=== PATIENT | female | born 1995 | race American Indian/Alaskan Native ===

== ENCOUNTER 2017-09-25 02:34 | Inpatient (IN) | payer MEDICAID, OTHER ==
[2017-09-25 02:58] VITALS: BMI 35.3
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
[2017-09-25 05:06] LABS: BASO % 0.5 % (0.0-2.0); EOS % 0.5 % (0.0-4.0); HEMATOCRIT 39.3 % (34.0-47.0); LYMPH # 2.3 K/uL (1.0-4.3); LYMPH % 23.9 % (20.0-40.0); MEAN CELL VOLUME 84.6 fl (81.0-99.0); MEAN CORPUSCULAR HEMOGLOBIN 27.7 pg (27.0-31.0); MEAN CORPUSCULAR HGB CONC 32.7 g/dL (33.0-37.0); MEAN PLATELET VOLUME 7.8 fl (7.2-11.7); MONO # 0.6 K/uL (0.0-0.8); MONO % 6.1 % (0.0-10.0); NEUT # 6.6 K/uL (1.8-7.0); NRBC % 0.1 % (0.0-0.0); WHITE BLOOD COUNT 9.5 K/uL (4.8-10.8)
[2017-09-25 05:13] LABS: RBC URINE 2 /hpf (0-3); URINE BILIRUBIN NEGATIVE (NEGATIVE); URINE BLOOD NEGATIVE (NEGATIVE); URINE COLOR YELLOW (YELLOW); URINE GLUCOSE (UA) NEG (Normal); URINE KETONE 20 mg/dL (NEGATIVE); URINE LEUKOCYTE ESTERASE NEG Leu/uL (Negative); URINE PROTEIN 30 mg/dL (NEGATIVE); URINE UROBILINOGEN 0.2-1.0 mg/dL (0.2-1.0); WBC URINE 3 /hpf (0-5)
[2017-09-25 05:15] LABS: ALB/GLOB RATIO 1.3 (1.0-2.1); ALCOHOL SERUM < 10 mg/dl (0-10); ALKALINE PHOSPHATASE 58 U/L (38-126); ALT/SGPT 25 U/L (9-52); AST/SGOT 27 U/L (14-36); BILIRUBIN,TOTAL 0.6 mg/dl (0.2-1.3); BLOOD UREA NITROGEN 9 mg/dl (7-17); CALCIUM 9.4 mg/dL (8.4-10.2); CARBON DIOXIDE 25 mmol/L (22-30); CHLORIDE 107 mmol/L (98-107); GFR AFRICAN-AMERICAN > 60; GLUCOSE,RANDOM 98 mg/dL (65-105); POTASSIUM 3.6 MMOL/L (3.6-5.0); SODIUM 145 mmol/l (132-148); TOTAL PROTEIN 7.9 G/DL (6.3-8.2)
[2017-09-25 08:07] VITALS: O2SAT 99
--- NOTE | 2017-09-25 11:51 | PCM.BM ---
Treatment Plan Problems - Problems identified on initial assessmt Problem 1 Date Initiated: 09/25/17 Time Initiated: 11:51 Assessment reference: NA Status: Active Problem 2 Date Initiated: 09/25/17 Time Initiated: 12:06 Assessment reference: NA Status: Active Problem 3 Date Initiated: 09/25/17 Time Initiated: 12:13 Assessment reference: NA Status: Active Treatment assets and liabiliti Patient Assests: resourceful, ADL independent, physically healthy Patient Liabilities: relationship conflicts, medical problems
--- NOTE | 2017-09-25 12:01 | PCM.BM ---
Treatment Plan Problems - Problems identified on initial assessmt Problem 1 Date Initiated: 09/25/17 Time Initiated: 11:51 Assessment reference: NA Status: Active Treatment assets and liabiliti Patient Assests: resourceful, ADL independent, physically healthy Patient Liabilities: relationship conflicts, medical problems - Milieu Protocol Maintain good personal hygiene: daily Encourage regular showers, daily Remind patient to perform daily oral care, daily Assist patient to perform ADL's Maintain personal safety: every shift Educate patient to report safety concerns to staff, every shift Monitor environment for contraband/sharps Medication safety: Monitor for expected outcome, potential side effects: every shift, Assess barriers to learning: every shift, Assess readiness for medication education: every shift
--- NOTE | 2017-09-25 12:04 | PCM.BM ---
Treatment Plan Problems - Problems identified on initial assessmt Problem 1 Date Initiated: 09/25/17 Time Initiated: 11:51 Assessment reference: NA Status: Active Treatment assets and liabiliti Patient Assests: resourceful, ADL independent, physically healthy Patient Liabilities: relationship conflicts, medical problems - Milieu Protocol Maintain good personal hygiene: daily Encourage regular showers, daily Remind patient to perform daily oral care, daily Assist patient to perform ADL's Maintain personal safety: every shift Educate patient to report safety concerns to staff, every shift Monitor environment for contraband/sharps Medication safety: Monitor for expected outcome, potential side effects: every shift, Assess barriers to learning: every shift, Assess readiness for medication education: every shift Family Contact Family involvement: Family/SO is involved Family contact: Family meeting planned to review treatment plan Discharge/Continuing Care - Education Needs Education Needs: Family Medication, Family Diagnosis/Disease Process, Patient Medication, Patient Diagnosis/Disease Process, Patient Coping Skills, Patient Anger Management skills, Patient Pain, Patient Nutrition
--- NOTE | 2017-09-25 12:08 | PCM.BM ---
Treatment Plan Problems - Problems identified on initial assessmt Problem 1 Date Initiated: 09/25/17 Time Initiated: 11:51 Assessment reference: NA Status: Active Problem 2 Date Initiated: 09/25/17 Time Initiated: 12:06 Assessment reference: NA Treatment assets and liabiliti Patient Assests: resourceful, ADL independent, physically healthy Patient Liabilities: relationship conflicts, medical problems - Milieu Protocol Maintain good personal hygiene: daily Encourage regular showers, daily Remind patient to perform daily oral care, daily Assist patient to perform ADL's Maintain personal safety: every shift Educate patient to report safety concerns to staff, every shift Monitor environment for contraband/sharps Medication safety: Monitor for expected outcome, potential side effects: every shift, Assess barriers to learning: every shift, Assess readiness for medication education: every shift Family Contact Family involvement: Family/SO is involved Family contact: Family meeting planned to review treatment plan Discharge/Continuing Care - Education Needs Education Needs: Family Medication, Family Diagnosis/Disease Process, Patient Medication, Patient Diagnosis/Disease Process, Patient Coping Skills, Patient Anger Management skills, Patient Pain, Patient Nutrition - Discharge Discharge Criteria: Normal sleep pattern, Ability to care for self
--- NOTE | 2017-09-25 12:14 | PCM.BM ---
Treatment Plan Problems - Problems identified on initial assessmt Problem 1 Date Initiated: 09/25/17 Time Initiated: 11:51 Assessment reference: NA Status: Active Problem 2 Date Initiated: 09/25/17 Time Initiated: 12:06 Assessment reference: NA Problem 3 Date Initiated: 09/25/17 Time Initiated: 12:13 Assessment reference: NA Status: Active Treatment assets and liabiliti Patient Assests: resourceful, ADL independent, physically healthy Patient Liabilities: relationship conflicts, medical problems - Milieu Protocol Maintain good personal hygiene: daily Encourage regular showers, daily Remind patient to perform daily oral care, daily Assist patient to perform ADL's Maintain personal safety: every shift Educate patient to report safety concerns to staff, every shift Monitor environment for contraband/sharps Medication safety: Monitor for expected outcome, potential side effects: every shift, Assess barriers to learning: every shift, Assess readiness for medication education: every shift Family Contact Family involvement: Family/SO is involved Family contact: Family meeting planned to review treatment plan Discharge/Continuing Care - Education Needs Education Needs: Family Medication, Family Diagnosis/Disease Process, Patient Medication, Patient Diagnosis/Disease Process, Patient Coping Skills, Patient Anger Management skills, Patient Pain, Patient Nutrition - Discharge Discharge Criteria: Normal sleep pattern, Ability to care for self
[2017-09-25] MEDS ORDERED: Magnesium Hydroxide Susp 30 ml UD PO PRN (14:07)
[2017-09-25] MEDS ORDERED: DiphenhydrAMINE 50 mg/ml Inj IM PRN (14:14)
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
[2017-09-25] MEDS ORDERED: Risperidone M tab 1 MG PO SCH (17:00)
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
[2017-09-27 09:59] LABS: T4 9.79 ug/dl (5.5-11.0)
[2017-09-27 10:13] LABS: THYROID STIMULATING HORMONE 0.85 mIU/ML (0.46-4.68)
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
--- NOTE | 2017-09-28 12:47 | CARD ---
APPROVED REPORT EKG Measurement Heart [id number] <Conclusion> Sinus bradycardia with marked sinus arrhythmia ST elevation, probably due to early repolarization Borderline ECG
--- NOTE | 2017-09-28 13:02 | CARD ---
APPROVED REPORT EKG Measurement Heart [id number] <Conclusion> Normal sinus rhythm ST elevation, consider early repolarization, pericarditis, or injury Nonspecific ST and T wave abnormality Abnormal ECG
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
[2017-09-29] MEDS: Divalproex 500 mg DR(BID formulation) PO SCH ×2 (10:41→18:00)
--- NOTE | 2017-09-29 10:56 | PCM.PYCHPN ---
Psychiatric Progress Note - Psychiatric Progress Note Patient seen today, length of contact: PATIENT EVALUATED DISCUSSED WITH TEAM CHART REVIEWED Patient Chief Complaint: I want you to call the medications with my name Problems Identified/Issues Discussed: PATIENT SEEN on the unit , appears anxious, irritable, labile , laughing to self , internally preoccupied, presenting with thought blocking pt denied command hallucinations , speech and thought form disorganized. denied any current suicidal or homicidal ideations, presenting with limited insight into illness Medical Problems: pt continues to be labile and disorganized increase abilify to 15 mg with plan to uptitrate gradualy start depakote 500mg bid , follow up on depakote level follow patient for psychopharmacological effects and side effect profile encourage pt to attend groups supportive therapy provided DSM 5 Symptoms Update: schizoaffective disorder bipolar Medication Change: Yes (INCREASE abilify, start depakote ) Medical Record Reviewed: Yes Mental Status Examination - Cognitive Function Orientation: Person Memory: Impaired, Recent Attention: Poor Concentration: Poor Association: Loose Fund of Knowledge: Poor - Mood Mood: Anxious - Affect Affect: Constricted - Speech Speech: Loud - Formal Thought Process Formal Thought Process: Hallucinations, Delusions, Circumstantial Psychotic Thoughts and Behaviors: pt internally preoccupied responding to internal stimuli, denied any current command hallucinations - Suicidal Ideation Suicidal Ideation: No - Homicidal Ideation Homicidal Ideation: No Goal/Treatment Plan - Goal/Treatment Plan Need for Continued Stay: Remain at risks for inpatient hospitalization, Discharge may exacerbated symptoms, Severe functional impairment Progress Toward Problem(s) and Goals/Treatment Plan: pt continues to be labile and disorganized increase abilify to 15 mg with plan to uptitrate gradualy start depakote 500mg bid , follow up on depakote level follow patient for psychopharmacological effects and side effect profile encourage pt to attend groups supportive therapy provided Estimated Date of D/C: 10/07/17
[2017-09-30] MEDS: Divalproex 500 mg DR(BID formulation) PO SCH ×2 (10:04→18:04)
--- NOTE | 2017-09-30 13:38 | PCM.PYCHPN ---
Psychiatric Progress Note - Psychiatric Progress Note Patient seen today, length of contact: PATIENT EVALUATED DISCUSSED WITH TEAM CHART REVIEWED Patient Chief Complaint: I want to call my executive officer Problems Identified/Issues Discussed: patient seen on the unit , appears anxious, irritable, labile , pacing , internally preoccupied, presenting with thought blocking pt denied command hallucinations , speech and thought form disorganized. denied any current suicidal or homicidal ideations, presenting with limited insight into illness Medical Problems: pt continues to be labile and disorganized increase abilify to 15 mg with plan to uptitrate gradualy start depakote 500mg bid , follow up on depakote level follow patient for psychopharmacological effects and side effect profile encourage pt to attend groups supportive therapy provided DSM 5 Symptoms Update: schizoaffective disorder bipolar Medication Change: Yes (discontinue abilify, start risperidal) Medical Record Reviewed: Yes Mental Status Examination - Cognitive Function Orientation: Person Memory: Impaired, Recent Attention: Poor Concentration: Poor Association: Loose Fund of Knowledge: Poor - Mood Mood: Anxious - Affect Affect: Constricted - Speech Speech: Loud - Formal Thought Process Formal Thought Process: Hallucinations, Delusions, Circumstantial Psychotic Thoughts and Behaviors: pt internally preoccupied responding to internal stimuli, denied any current command hallucinations - Suicidal Ideation Suicidal Ideation: No - Homicidal Ideation Homicidal Ideation: No Goal/Treatment Plan - Goal/Treatment Plan Need for Continued Stay: Remain at risks for inpatient hospitalization, Discharge may exacerbated symptoms, Severe functional impairment Progress Toward Problem(s) and Goals/Treatment Plan: pt continues to be labile and disorganized discontinue abilify start risperidone 2mg bid continue depakote 500mg bid , follow up on depakote level follow patient for psychopharmacological effects and side effect profile encourage pt to attend groups supportive therapy provided Estimated Date of D/C: 10/07/17
[2017-09-30] MEDS: Risperidone M TAB 2 MG PO SCH ×2 (18:04→21:19)
[2017-10-01] MEDS: Divalproex 500 mg DR(BID formulation) PO SCH ×2 (13:04→17:39)
[2017-10-01] MEDS: Risperidone M TAB 2 MG PO SCH ×2 (13:05→17:39)
--- NOTE | 2017-10-01 14:41 | PCM.PYCHPN ---
Psychiatric Progress Note - Psychiatric Progress Note Patient seen today, length of contact: PATIENT EVALUATED DISCUSSED WITH TEAM CHART REVIEWED 35min Patient Chief Complaint: thinking people were trying to harm her, thinking about her, noted to laughing in social area in appropriately. pt had recent change in abilify to risperdal yesterday. staff report pt adherent with rx, somewhat isolative at times. Sleeping well but is somewhat somnolent requiring redirection to be oob. Problems Identified/Issues Discussed: alteration in cognition Medical Problems: per chart Diagnostic Results: per psychiatry per medicine per nursing per social work DSM 5 Symptoms Update: alteration in cognition alteration in self care Medication Change: No Medical Record Reviewed: Yes Consults ordered or reviewed: pt being followed by hospitalist Mental Status Examination - Cognitive Function Orientation: Person Memory: Impaired, Recent Attention: Poor Concentration: Poor Association: Loose Fund of Knowledge: Poor Decription of patient's judgement and insights: impaired - Mood Mood: Anxious - Affect Affect: Constricted - Speech Speech: Loud - Formal Thought Process Formal Thought Process: Hallucinations, Delusions, Circumstantial - Suicidal Ideation Suicidal Ideation: No - Homicidal Ideation Homicidal Ideation: No Goal/Treatment Plan - Goal/Treatment Plan Need for Continued Stay: Remain at risks for inpatient hospitalization, Discharge may exacerbated symptoms, Severe functional impairment Progress Toward Problem(s) and Goals/Treatment Plan: inpt milieu vital signs and clinical assessment per protocol and per status pt noted with few yeast buds in urine-staff report pt without reported complaints-will repeat if remain contact hospitalist to assess if treatment warranted, also given pt's psychotic presentation-pt. highter risk for potential risk for exposure to STI's/INcluding possible HIV/Hepatitis adjust meds per status obtain valproic acid level [id number] prior to am valproic acid with [facility] discharge planning in progress?team may consider long acting injectable i.e. risperdal consta vs. invega sustenna Estimated Date of D/C: 10/07/17
[2017-10-02 00:07] LABS: URINE BILIRUBIN NEGATIVE (NEGATIVE); URINE COLOR YELLOW (YELLOW); URINE GLUCOSE (UA) NEGATIVE (Normal)
[2017-10-02 00:08] LABS: URINE BLOOD LARGE (NEGATIVE); URINE KETONE NEGATIVE (NEGATIVE)
[2017-10-02 00:09] LABS: RBC URINE 32 /hpf (0-3); URINE LEUKOCYTE ESTERASE LARGE Leu/uL (Negative); URINE PROTEIN NEGATIVE (NEGATIVE); URINE UROBILINOGEN 0.2-1.0 mg/dL (0.2-1.0); WBC URINE 58 /hpf (0-5)
[2017-10-02 00:10] LABS: URINE BACTERIA MANY (<OCC)
[2017-10-02] MEDS: Divalproex 500 mg DR(BID formulation) PO SCH ×2 (12:35→18:17)
[2017-10-02] MEDS: Risperidone M TAB 2 MG PO SCH ×2 (12:35→18:18)
--- NOTE | 2017-10-02 16:39 | PCM.PYCHPN ---
Psychiatric Progress Note - Psychiatric Progress Note Patient seen today, length of contact: PATIENT EVALUATED DISCUSSED WITH TEAM CHART REVIEWED 35min Patient Chief Complaint: pt appears somewhat calmer today although at times seen to be or appear to be laughing to self. staff report pt adherence with treatment. denies side effects rx. sleep and appetite Problems Identified/Issues Discussed: alteration in cognition Medical Problems: per chart Diagnostic Results: per psychiatry per medicine per nursing per social work DSM 5 Symptoms Update: alteration in cognition Medication Change: No Medical Record Reviewed: Yes Consults ordered or reviewed: pt being followed by hospitalist Mental Status Examination - Cognitive Function Orientation: Person Memory: Impaired, Recent Attention: Poor Concentration: Poor Association: Loose Fund of Knowledge: Poor Decription of patient's judgement and insights: impaired - Mood Mood: Anxious - Affect Affect: Constricted - Speech Speech: Loud - Formal Thought Process Formal Thought Process: Hallucinations, Delusions, Circumstantial - Suicidal Ideation Suicidal Ideation: No - Homicidal Ideation Homicidal Ideation: No Goal/Treatment Plan - Goal/Treatment Plan Need for Continued Stay: Remain at risks for inpatient hospitalization, Discharge may exacerbated symptoms, Severe functional impairment Progress Toward Problem(s) and Goals/Treatment Plan: inpt milieu vital signs and clinical assessment per protocol and per status pt noted with few yeast buds in urine-staff report pt without reported complaints-will repeat if remain contact hospitalist to assess if treatment warranted, also given pt's psychotic presentation-pt. highter risk for potential risk for exposure to STI's/INcluding possible HIV/Hepatitis adjust meds per status obtain valproic acid level [id number] prior to am valproic acid with [facility] discharge planning in progress?team may consider long acting injectable i.e. risperdal consta vs. invega sustenna Estimated Date of D/C: 10/07/17 - Smoking Cessation Smoking Cessation Initiated: No Reason for not providing: pt defers
[2017-10-03 06:47] LABS: ALB/GLOB RATIO 1.2 (1.0-2.1); BILIRUBIN,TOTAL 0.4 mg/dl (0.2-1.3); TOTAL PROTEIN 7.2 G/DL (6.3-8.2)
[2017-10-03 13:46] LABS: HEMATOCRIT 42.4 % (34.0-47.0); MEAN CELL VOLUME 85.1 fl (81.0-99.0); MEAN CORPUSCULAR HEMOGLOBIN 27.7 pg (27.0-31.0); MEAN CORPUSCULAR HGB CONC 32.5 g/dL (33.0-37.0); RED CELL DISTRIBUTION WIDTH 12.7 % (11.5-14.5); WHITE BLOOD COUNT 5.5 K/uL (4.8-10.8)
[2017-10-03] MEDS: Risperidone M TAB 2 MG PO SCH (13:54)
[2017-10-03] MEDS: Divalproex 500 mg DR(BID formulation) PO SCH ×2 (13:54→17:19)
--- NOTE | 2017-10-03 14:14 | PCM.PYCHPN ---
Psychiatric Progress Note - Psychiatric Progress Note Patient seen today, length of contact: PATIENT EVALUATED DISCUSSED WITH TEAM CHART REVIEWED 35min Patient Chief Complaint: I hear the voices when people concentrate on me Problems Identified/Issues Discussed: patient seen in her room, isolative, refusing to attend groups or interact with staff, pt appears paranoid , internally preoccupied, observed laughing to self and responding to internal stimuli pt denied non command auditory hallucinations, denied suicidal or homicidal ideations no reported side effects of medications Medical Problems: pt has urinary tract infection, will b started on antibiotics by family practice DSM 5 Symptoms Update: schizoaffective disorder bipolar Medication Change: Yes (increase risperidone to 5mg) Medical Record Reviewed: Yes Consults ordered or reviewed: family practice consult for UTI Mental Status Examination - Cognitive Function Orientation: Person Memory: Impaired, Recent Attention: Poor Concentration: Poor Association: Loose Fund of Knowledge: Poor Decription of patient's judgement and insights: IMPAIRED INSIGHT AND POOR JUDGMENT - Mood Mood: Anxious - Affect Affect: Constricted - Speech Speech: Loud - Formal Thought Process Formal Thought Process: Hallucinations, Delusions, Circumstantial Additional comments: PT CONTINUES TO BE RESPONDING TO INTERNAL STIMULI, DENIED COMMAND HALLUCINATIONS DENIED SUICIDAL OR HOMICIDAL IDEATIONS - Suicidal Ideation Suicidal Ideation: No - Homicidal Ideation Homicidal Ideation: No Goal/Treatment Plan - Goal/Treatment Plan Need for Continued Stay: Remain at risks for inpatient hospitalization, Discharge may exacerbated symptoms, Severe functional impairment Progress Toward Problem(s) and Goals/Treatment Plan: pt continues to be labile and disorganized INCREASE risperidone to 5mg continue depakote 500mg bid , follow up on depakote level follow patient for psychopharmacological effects and side effect profile encourage pt to attend groups supportive therapy provided Estimated Date of D/C: 10/07/17
[2017-10-04] MEDS: Divalproex 500 mg DR(BID formulation) PO SCH ×2 (09:23→17:46)
--- NOTE | 2017-10-04 13:32 | PCM.PYCHPN ---
Psychiatric Progress Note - Psychiatric Progress Note Patient seen today, length of contact: PATIENT EVALUATED DISCUSSED WITH TEAM CHART REVIEWED 35min Patient Chief Complaint: I feel tired Problems Identified/Issues Discussed: patient seen in her room, better eye contact, appears less disorganized denied command hallucinations, denied suicidal or homicidal ideations no reported side effects of medications Medical Problems: pt has urinary tract infection, started on antibiotics by family practice DSM 5 Symptoms Update: schizoaffective disorder bipolar Medication Change: No Medical Record Reviewed: Yes Mental Status Examination - Cognitive Function Orientation: Person Memory: Impaired, Recent Attention: Poor Concentration: Poor Association: Loose Fund of Knowledge: Poor Decription of patient's judgement and insights: IMPAIRED INSIGHT AND POOR JUDGMENT - Mood Mood: Anxious - Affect Affect: Constricted - Speech Speech: Loud - Formal Thought Process Formal Thought Process: Delusions, Circumstantial - Suicidal Ideation Suicidal Ideation: No - Homicidal Ideation Homicidal Ideation: No Goal/Treatment Plan - Goal/Treatment Plan Need for Continued Stay: Remain at risks for inpatient hospitalization, Discharge may exacerbated symptoms, Severe functional impairment Progress Toward Problem(s) and Goals/Treatment Plan: pt continues less disorganized continue with risperidone 5mg continue depakote 500mg bid , follow up on depakote level follow patient for psychopharmacological effects and side effect profile encourage pt to attend groups supportive therapy provided Estimated Date of D/C: 10/07/17
[2017-10-04] MEDS: Alum-Mag Hydrox-Simethicone Susp (30 mL) PO PRN (17:46)
[2017-10-05] MEDS: Divalproex 500 mg DR(BID formulation) PO SCH (13:12)
[2017-10-05] MEDS: Alum-Mag Hydrox-Simethicone Susp (30 mL) PO PRN (14:10)
--- NOTE | 2017-10-05 14:33 | PCM.PYCHPN ---
Psychiatric Progress Note - Psychiatric Progress Note Patient seen today, length of contact: PATIENT EVALUATED DISCUSSED WITH TEAM CHART REVIEWED 35min Patient Chief Complaint: i want to be out of [facility] Problems Identified/Issues Discussed: patient seen in her room, better eye contact, appears less disorganized , denied suicidal or homicidal ideations no reported side effects of medications pt however observed at times to continue to be internally preoccupied , denied command hallucinations limited insight into illness Medical Problems: pt complained of chest pain, vitals evaluated stable ekg ordered, borderline consult requested will follow up on results Medication Change: No Medical Record Reviewed: Yes Mental Status Examination - Cognitive Function Orientation: Person Memory: Impaired, Recent Attention: WNL Concentration: WNL Association: Loose Fund of Knowledge: Poor Decription of patient's judgement and insights: IMPAIRED INSIGHT AND POOR JUDGMENT - Mood Mood: Anxious - Affect Affect: Constricted - Speech Speech: Loud - Formal Thought Process Formal Thought Process: Delusions, Circumstantial Psychotic Thoughts and Behaviors: pt internally preoccupied denied command hallucinations - Suicidal Ideation Suicidal Ideation: No - Homicidal Ideation Homicidal Ideation: No Goal/Treatment Plan - Goal/Treatment Plan Need for Continued Stay: Remain at risks for inpatient hospitalization, Discharge may exacerbated symptoms, Severe functional impairment Progress Toward Problem(s) and Goals/Treatment Plan: pt presents to be less disorganized continue with risperidone 5mg change depakote to 1000mg qhs , follow up on depakote level follow patient for psychopharmacological effects and side effect profile encourage pt to attend groups supportive therapy provided Estimated Date of D/C: 10/07/17
[2017-10-05] MEDS: Risperidone M tab 1 MG PO SCH ×2 (17:44→18:13)
--- NOTE | 2017-10-05 17:55 | CARD ---
APPROVED REPORT EKG Measurement Heart [id number] <Conclusion> Normal sinus rhythm with sinus arrhythmia Nonspecific T wave abnormality Abnormal ECG
[2017-10-05] MEDS: Divalproex 500 mg ER (ONCE DAILY formulation) PO SCH (21:26)
[2017-10-05] MEDS ORDERED: Risperidone M TAB 2 MG PO SCH (22:00)
--- NOTE | 2017-10-06 12:28 | PCM.PYCHPN ---
Psychiatric Progress Note - Psychiatric Progress Note Patient seen today, length of contact: PATIENT EVALUATED DISCUSSED WITH TEAM CHART REVIEWED 35min Patient Chief Complaint: i WANT A [employer] WORK[employer] Problems Identified/Issues Discussed: patient seen in her room, requesting to be linked to ICMS, better eye contact, appears less disorganized , denied suicidal or homicidal ideations no reported side effects of medications pt however observed at times to continue to be internally preoccupied , with thought blocking denied command hallucinations limited insight into illness Medical Problems: pt had abnormal EKG cardiology consult requested DSM 5 Symptoms Update: schizoaffective disorder bipolar Medication Change: No Medical Record Reviewed: Yes Consults ordered or reviewed: cardiology consult requested for abnormal ekg Mental Status Examination - Cognitive Function Orientation: Person Memory: Impaired, Recent Attention: WNL Concentration: WNL Association: Loose Fund of Knowledge: Poor Decription of patient's judgement and insights: IMPAIRED INSIGHT AND POOR JUDGMENT - Mood Mood: Anxious - Affect Affect: Constricted - Speech Speech: Loud - Formal Thought Process Formal Thought Process: Delusions, Circumstantial Psychotic Thoughts and Behaviors: pt internally preoccupied m, however denied denied command hallucinations - Suicidal Ideation Suicidal Ideation: No - Homicidal Ideation Homicidal Ideation: No Goal/Treatment Plan - Goal/Treatment Plan Need for Continued Stay: Remain at risks for inpatient hospitalization, Discharge may exacerbated symptoms, Severe functional impairment Progress Toward Problem(s) and Goals/Treatment Plan: pt presents to be less disorganized continue to be internally preoccupied, increased risperidone to 6mg daily depakote to 1000mg qhs , depakote level 78 follow patient for psychopharmacological effects and side effect profile encourage pt to attend groups supportive therapy provided Estimated Date of D/C: 10/07/17
[2017-10-06] MEDS: Risperidone M tab 1 MG PO SCH ×2 (14:40→19:30)
[2017-10-06] MEDS: Divalproex 500 mg ER (ONCE DAILY formulation) PO SCH (21:24)
[2017-10-07] MEDS: Risperidone M tab 1 MG PO SCH ×2 (11:06→18:18)
--- NOTE | 2017-10-07 12:59 | PCM.PYCHPN ---
Psychiatric Progress Note - Psychiatric Progress Note Patient seen today, length of contact: PATIENT EVALUATED DISCUSSED WITH TEAM CHART REVIEWED 35min Patient Chief Complaint: I do not want medications during the day and i am not doing any tests Problems Identified/Issues Discussed: patient seen in her room, refusing to attend the treatment team, refusing her day medicaitions, angry argumentative , refusing to have the echocardiogram patient not responding to redirection, poor eye contact, appears internally preoccupied with thought block patient requesting to leave hospital patient denied any currencommand hallucinations denied suicidal or homicidal ideations Medical Problems: pt had abnormal EKG cardiology consult done echocardiogram requested DSM 5 Symptoms Update: schizoaffective disorder bipolar Medication Change: No Medical Record Reviewed: Yes Consults ordered or reviewed: cardiology consult Mental Status Examination - Cognitive Function Orientation: Person Memory: Impaired, Recent Attention: Poor Concentration: Poor Association: Loose Fund of Knowledge: Poor Decription of patient's judgement and insights: IMPAIRED INSIGHT AND POOR JUDGMENT - Mood Mood: Anxious - Affect Affect: Constricted - Speech Speech: Loud - Formal Thought Process Formal Thought Process: Hallucinations, Delusions, Circumstantial Psychotic Thoughts and Behaviors: pt internally preoccupied with thought blocking, however denied denied command hallucinations - Suicidal Ideation Suicidal Ideation: No - Homicidal Ideation Homicidal Ideation: No Goal/Treatment Plan - Goal/Treatment Plan Need for Continued Stay: Remain at risks for inpatient hospitalization, Discharge may exacerbated symptoms, Severe functional impairment Progress Toward Problem(s) and Goals/Treatment Plan: pt today refusing treatment , requesting to leave continue to be internally preoccupied, disorganized and irritable pt referred to be screened for involuntary admission as she continues to be disorganized continue with risperidone 6mg daily depakote 1000mg qhs , depakote level 78 follow patient for psychopharmacological effects and side effect profile encourage pt to attend groups supportive therapy provided Estimated Date of D/C: 10/07/17
--- NOTE | 2017-10-07 13:58 | PCM.BM ---
<Eirs Bashir - Last Filed: 10/07/17 13:57> Treatment Plan Problems - Problems identified on initial assessmt Problem 1 Date Initiated: 09/25/17 Time Initiated: 11:51 Assessment reference: NA Status: Active Problem 2 Date Initiated: 09/25/17 Time Initiated: 12:06 Assessment reference: NA Status: Active Problem 3 Date Initiated: 09/25/17 Time Initiated: 12:13 Assessment reference: NA Status: Active Treatment assets and liabiliti Patient Assests: resourceful, ADL independent, physically healthy Patient Liabilities: relationship conflicts, medical problems - Milieu Protocol Maintain good personal hygiene: daily Encourage regular showers, daily Remind patient to perform daily oral care, daily Assist patient to perform ADL's Maintain personal safety: every shift Educate patient to report safety concerns to staff, every shift Monitor environment for contraband/sharps Medication safety: Monitor for expected outcome, potential side effects: every shift, Assess barriers to learning: every shift, Assess readiness for medication education: every shift Milieu Narrative: pt today refusing treatment , requesting to leave continue to be internally preoccupied, disorganized and irritable pt referred to be screened for involuntary admission as she continues to be disorganized continue with risperidone 6mg daily depakote 1000mg qhs , depakote level 78 follow patient for psychopharmacological effects and side effect profile encourage pt to attend groups supportive therapy provided Family Contact Family involvement: Family/SO is involved Family contact: Family meeting planned to review treatment plan Discharge/Continuing Care - Education Needs Education Needs: Family Medication, Family Diagnosis/Disease Process, Patient Medication, Patient Diagnosis/Disease Process, Patient Coping Skills, Patient Anger Management skills, Patient Pain, Patient Nutrition - Discharge Discharge Criteria: Normal sleep pattern, Ability to care for self - Treatment Team Participation Patient/Family/SO Statement: pt today refusing treatment , requesting to leave continue to be internally preoccupied, disorganized and irritable pt referred to be screened for involuntary admission as she continues to be disorganized continue with risperidone 6mg daily depakote 1000mg qhs , depakote level 78 follow patient for psychopharmacological effects and side effect profile encourage pt to attend groups supportive therapy provided Treatment Plan Review - Problem Problem 1 Time Initiated: 11:51 Problem 2 Time Initiated: 12:06 Problem 3 Time Initiated: 12:13 - Discharge / Continuing Care [facility] to:: [facility] Partial hospital Health Needs: Doctor appointments, Medications/Rx (Pt refused to participate in treatment team today. Pt is increasingly irritable. ), Educational <Maxwell Webb - Last Filed: 10/11/17 11:40> - Diagnosis (1) Schizo affective schizophrenia Status: Acute Interventions: psychotherapy , pharmacotherapy 10/10/17 14:04
--- NOTE | 2017-10-07 14:01 | PN ---
FOLLOWUP DATE: SUBJECTIVE: The patient is depressed today. She refused medications and she refused to go for an echo. She denies any chest pain. PHYSICAL EXAMINATION: VITAL SIGNS: Blood pressure 123/62, heart rate 87, temperature 96.4, respirations 20. HEENT: Normocephalic. CHEST: Clear. HEART: S1 and S2 regular. EXTREMITIES: No edema. ASSESSMENT: 1. Depression. 2. Borderline EKG with nonspecific EKG changes and early repolarization pattern. RECOMMENDATIONS: Continue current psych medications. I spoke to the patient and encouraged her to have the echocardiography study done today. The case was discussed with the psychiatrist, Dr. Webb. Rocky Stone MD
[2017-10-07 16:25] VITALS: RESP 18
[2017-10-07] MEDS: Divalproex 500 mg ER (ONCE DAILY formulation) PO SCH (21:55)
--- NOTE | 2017-10-08 09:20 | PCM.PYCHPN ---
Psychiatric Progress Note - Psychiatric Progress Note Patient seen today, length of contact: Patient evaluated, case discussed w/ team , chart reviewed Patient Chief Complaint: "I'm okay" Problems Identified/Issues Discussed: Patient was screened for involuntary admission and not accepted. Patient is agreeable to staying in the hospital voluntarily at this time for continued psychiatric treatment. She was observed lying calmly in bed with her head under the blanket and gave minimal responses to questions. She denied AH/VH/SI/ HI. Although patient denied psychosis to advertising writer, she is likely guarded and seems internally preoccupied at times. She has blunted affect and poverty of speech. Medication Change: No Medical Record Reviewed: Yes Mental Status Examination - Cognitive Function Orientation: Person Memory: Impaired, Recent Attention: Poor Concentration: Poor Association: Loose Fund of Knowledge: Poor Decription of patient's judgement and insights: Poor I/J - Mood Mood: Anxious - Affect Affect: Blunted - Speech Speech: Soft - Formal Thought Process Formal Thought Process: Delusions, Circumstantial Psychotic Thoughts and Behaviors: +Patient guarded w/ advertising writer; likely continues to be delusional - Suicidal Ideation Suicidal Ideation: No - Homicidal Ideation Homicidal Ideation: No Goal/Treatment Plan - Goal/Treatment Plan Need for Continued Stay: Remain at risks for inpatient hospitalization, Discharge may exacerbated symptoms, Severe functional impairment Progress Toward Problem(s) and Goals/Treatment Plan: Schizoaffective Disorder, Bipolar Type -Continue Risperidone 6mg daily -Continue Depakote 1000mg qhs, VPA level 78 -Individual and group therapy -Disposition planning Estimated Date of D/C: 10/11/17
[2017-10-08] MEDS: Risperidone M tab 1 MG PO SCH ×2 (17:28→17:30)
[2017-10-08] MEDS: Divalproex 500 mg ER (ONCE DAILY formulation) PO SCH (22:03)
--- NOTE | 2017-10-09 08:58 | PCM.PYCHPN ---
Psychiatric Progress Note - Psychiatric Progress Note Patient seen today, length of contact: Patient evaluated, case discussed w/ team , chart reviewed Patient Chief Complaint: "I'm okay" Problems Identified/Issues Discussed: She was observed lying calmly in bed with her head under the blanket and gave minimal responses to questions. She denied AH/VH/SI/HI. Although patient denied psychosis to telegraphic typewriter operator, she continues to seem to be psychotic and internally preoccupied at times. She has blunted affect and poverty of speech. Medication Change: No Medical Record Reviewed: Yes Mental Status Examination - Cognitive Function Orientation: Person, Place Memory: Impaired, Recent Attention: Poor Concentration: Poor Association: Loose Fund of Knowledge: Poor Decription of patient's judgement and insights: Poor I/J - Mood Mood: Anxious - Affect Affect: Blunted - Speech Speech: Soft - Formal Thought Process Formal Thought Process: Delusions, Paranoia (Possible paranoia), Circumstantial Psychotic Thoughts and Behaviors: +Patient guarded w/ telegraphic typewriter operator; likely continues to be delusional - Suicidal Ideation Suicidal Ideation: No - Homicidal Ideation Homicidal Ideation: No Goal/Treatment Plan - Goal/Treatment Plan Need for Continued Stay: Remain at risks for inpatient hospitalization, Discharge may exacerbated symptoms, Severe functional impairment Progress Toward Problem(s) and Goals/Treatment Plan: Schizoaffective Disorder, Bipolar Type; patient needs continued hospitalization for treatment and safety -Increase Risperdal to 3 mg PO AM/ 4 mg PO HS -Continue Depakote 1000mg qhs, VPA level 78 -Individual and group therapy -Disposition planning Estimated Date of D/C: 10/12/17
[2017-10-09] MEDS: Risperidone M tab 1 MG PO SCH (17:41)
[2017-10-09] MEDS: Risperidone M TAB 2 MG PO SCH (21:21)
[2017-10-09] MEDS: Divalproex 500 mg ER (ONCE DAILY formulation) PO SCH (21:21)
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
[2017-10-10] MEDS: Risperidone M tab 1 MG PO SCH (11:00)
--- NOTE | 2017-10-10 14:22 | PCM.PYCHPN ---
Psychiatric Progress Note - Psychiatric Progress Note Patient seen today, length of contact: Patient evaluated, case discussed w/ team , chart reviewed Patient Chief Complaint: I LIKE TO SLEEP THERE IS NOTHING WRONG WITH THAT Problems Identified/Issues Discussed: PT EVALAUTED IN BED, POOR EYE CONTACT COVERING HER FACE, ISOLATIVE, IN HER ROOM , ARGUMENTATIVE WHEN DISCUSSING MEDICATIONS,PARTIAL COMPLIANCE, CONTINUES TO PRESENT WITH THOUGHT BLOCKING AND , SEEMS TO BE RESPONDING TO INTERNAL STIMULI, PT SIGNED 48 HOUR NOTICE REQUESTING DISCHARGE, REFUSING TO ATTEND GROUPS. DENIED COMMAND HALLUCINATIONS, DENIED SUICIDAL OR HOMICIDAL IDEATIONS Medical Problems: pt had abnormal EKG cardiology consult done echocardiogram requested DSM 5 Symptoms Update: SCHIZOAFFECTIVE DISORDER BIPOLAR Medication Change: No Medical Record Reviewed: Yes Mental Status Examination - Cognitive Function Orientation: Person, Place Memory: Impaired, Recent Attention: Poor Concentration: Poor Association: Loose Fund of Knowledge: Poor - Mood Mood: Anxious - Affect Affect: Constricted - Speech Speech: Loud - Formal Thought Process Formal Thought Process: Delusions, Paranoia (Possible paranoia), Circumstantial - Suicidal Ideation Suicidal Ideation: No - Homicidal Ideation Homicidal Ideation: No Goal/Treatment Plan - Goal/Treatment Plan Need for Continued Stay: Remain at risks for inpatient hospitalization, Discharge may exacerbated symptoms, Severe functional impairment Progress Toward Problem(s) and Goals/Treatment Plan: pt today refusing treatment signed 48 hours notice pt continues to be floridaly psychotic , pt will be reffered for screening again for involuntary admission as pt continues to be psychotic with limited insight into illness continue with risperidone 7mg continue with depakote 500mg bid encourage pt to attend groups supportive therapy provided Estimated Date of D/C: 10/12/17
[2017-10-10] MEDS: Risperidone M TAB 2 MG PO SCH (21:45)
[2017-10-10] MEDS: Divalproex 500 mg ER (ONCE DAILY formulation) PO SCH (21:45)
[2017-10-11 09:05] VITALS: BP 106/70; PULSE 77; TEMP 96.6
[2017-10-11] MEDS: Risperidone M tab 1 MG PO SCH (10:17)
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
== END 2017-10-11 13:35 | disposition home or self-care (01) | DRG 430 ==
LOC: H.ER 02:34 → H.ERHOLD 05:12 → H.PSYCH 09:14
PROVIDERS: ADMIT Psychiatry & Neurology Psychiatry; ATTEND Psychiatry & Neurology Psychiatry
PROC: GZHZZZZ Group Psychotherapy (ICD-10-PCS; principal; 2017-09-25)
PROC: GZ56ZZZ Individual Psychotherapy, Supportive (ICD-10-PCS; 2017-09-25)
DX: F20.9 Schizophrenia, unspecified (principal); E11.9 Type 2 diabetes mellitus without complications; N39.0 Urinary tract infection, site not specified; R94.31 Abnormal electrocardiogram [ECG] [EKG]; Z53.20 Procedure and treatment not carried out because of patient's decision for unspecified reasons